=== PATIENT | female | born 1985 | race Hispanic/Latino ===

== ENCOUNTER 2017-04-16 12:44 | Outpatient (CLI) | payer MEDICAID ==
[2017-04-16 13:32] LABS: Bacteria,Urine 1+ /HPF (Negative); Mucus,Urine FEW /HPF
[2017-04-16 13:34] LABS: Bilirubin,Urine NEG (Negative); Blood,Urine LG (Negative); Ketones,Urine NEG (Negative); Leukocyte Esterase,Urine MOD (Negative); Nitrite,Urine NEG (Negative); Protein,Urine <15 mg/dL mg/dL (Negative); Urobilinogen,Urine < 2.0 mg/dL (<2.0)
[2017-04-16 13:43] VITALS: BP 119/74
[2017-04-16] MEDS ORDERED: LACTATED RINGERS 500 ML IV ONE (14:00)
== END 2017-04-16 14:02 | disposition home or self-care (01) ==
LOC: TRG 12:44
PROVIDERS: ATTEND Obstetrics & Gynecology Gynecology
DX: O47.02 False labor before 37 completed weeks of gestation, second trimester (principal); Z3A.23 23 weeks gestation of pregnancy
CPT/HCPCS: 81001

== ENCOUNTER 2017-05-10 17:31 | Inpatient (IN) | payer MEDICAID ==
[2017-05-10] MEDS ORDERED: BICITRA PO ONE (17:48)
[2017-05-10] MEDS ORDERED: REGLAN IV ONE (17:48)
[2017-05-10] MEDS ORDERED: PEPCID IV ONE (17:48)
[2017-05-10] MEDS ORDERED: EMLA TP PRN (17:48)
--- NOTE | 2017-05-10 17:58 | History and Physical Report ---
History of Present Illness Date of examination: 05/10/17 Date of admission: 05/10/17 17:31 Chief complaint: Multiple abnormalities at 25+6 weeks History of present illness: 31-year-old 003 at 25+6 weeks is referred from maternal medicine office for multiple abnormalities, she is a [facility] patient. Essential history is patient with severe IUGR, oligohydramnios, SUA, VSD, cardiomegaly with pericardial effusion, abnormal calvarium. [facility] notes, patient previously declined amnio infusion and an offer for termination. It appears patient was exposed to methotrexate at about 1-2 weeks gestation, treatment for psoriasis. She was seen at the [facility] office today where oligohydramnios was confirmed and Doppler studies showed reversed flow. Therefore sent to this hospital for delivery with recommendation for section. She has been previously informed of risk of demise. Past History Past Medical History: other (Psoriasis) Past Surgical History: no surgical history [employer] History: denies: HIV, syphilis, trichomonas Social history: single, full code. denies: alcohol abuse, prescription drug abuse, IV drug use - Obstetrical History Expected Date of Delivery: 08/17/17 Actual Gestation: 25 Week(s) 6 Day(s) : 4 Para: 3 Medications and Allergies Allergies Allergy/AdvReac Type Severity Reaction Status Date / Time No Known Allergies Allergy Verified 09/17/14 14:42 Home Medications Medication Instructions Recorded Confirmed Last Taken Type No Known Home Medications [No 09/19/14 09/19/14 Unknown History Reported Home Medications] Active Meds: Active Medications Citric Acid/Sodium Citrate (Bicitra) 30 ml PO ONCE ONE Stop: 05/10/17 17:49 Famotidine (Pepcid) 20 mg IV ONCE ONE Stop: 05/10/17 17:49 Cefazolin Sodium (Ancef/Sterile Water 2 Gm/20 Ml) 2 gm in 20 mls @ 80 mls/hr IV PREOP NR PRN Reason: Protocol Lactated Ringer's (Lactated Ringers) 1,000 mls @ 2,250 mls/hr IV PREOP JERRI Stop: 05/11/17 18:27 Oxytocin/Sodium Chloride (Pitocin/Ns 20 Unit/1000ml Drip) 20 units in 1,000 mls @ 0 mls/hr IV TITR JERRI PRN Reason: As Directed Lidocaine/Prilocaine (Emla) 1 applic TP ONCE PRN PRN Reason: for milian catheter insertion Metoclopramide HCl (Reglan) 10 mg IV ONCE ONE Stop: 05/10/17 17:49 Review of Systems Constitutional: no fever, no chills, no weakness, no lethargy, no chronic headaches, no chronic pain Cardiovascular: no chest pain, no orthopnea, no syncope, no lightheadedness, no shortness of breath, no dyspnea on exertion, no high blood pressure Respiratory: no cough, no shortness of breath, no dyspnea on exertion Gastrointestinal: no abdominal pain, no nausea, no vomiting, no heartburn Genitourinary: no vaginal bleeding, no vaginal discharge, no leakage of fluid, no contractions - Physical Exam Cardiovascular: Regular rate, Normal S1, Normal S2 Lungs: Positive: Clear to auscultation, Normal air movement Abdomen: Positive: normal appearance, soft. Negative: distention, tenderness, guarding, rigidity Vulva: both: normal Uterus: Positive: enlarged. Negative: tender Adnexa: both: normal Extremities: Positive: normal Results All other labs normal. Assessment and Plan A: 31-year-old at 25+6 weeks here for Issues -IUGR w/ reversed flow -Abnormal ; echo w/ multiple abn (VSD, SUA, Cardiomegaly, VSD) -Abnormal skull P: -Neonatology consult placed -Discussed section with the patient, advised that she will have a vertical uterine scar requiring C-sections in future -Disposition after neonatology consult - Patient Problems (1) 25 to 26 weeks gestation of Current Visit: Yes Status: Acute (2) IUGR (intrauterine growth restriction) Current Visit: Yes Status: Acute (3) abnormality in antepartum Current Visit: Yes Status: Acute Qualifiers: Fetus number: F (4) Abnormal echocardiogram affecting antepartum care of mother Current Visit: Yes Status: Acute Qualifiers: Fetus number: F
[2017-05-10] MEDS ORDERED: ANCEF/STERILE WATER 2 GM/20 ML 2 GM/20 ML SYRINGE IV NR (18:00)
[2017-05-10] MEDS ORDERED: LACTATED RINGERS 1,000 ML IV SCH (18:00)
[2017-05-10] MEDS ORDERED: PITOCin/NS 20 UNIT/1000ML DRIP 20 UNITS/1,000 ML BAG IV SCH ×2 (18:00→23:45)
[2017-05-10 20:10] LABS: Basophils % (Auto) 0.2 % (0.0-1.8); Hematocrit 36.7 % (30.3-42.9); Hemoglobin 12.5 gm/dl (10.1-14.3); Mean Corpuscular HGB Conc 34 % (30-34); Mean Corpuscular Hemoglobin 31 pg (28-32); Mean Corpuscular Volume 91 fl (79-97); Platelet Count 333 K/mm3 (140-440); Red Blood Count 4.06 M/mm3 (3.65-5.03); Red Cell Distribution Width 13.2 % (13.2-15.2); White Blood Count 15.8 K/mm3 (4.5-11.0)
[2017-05-10] MEDS ORDERED: CERVIDIL VG ONE (23:13)
[2017-05-10] MEDS ORDERED: ePHEDrine SULFATE IV PRN (23:13)
[2017-05-10] MEDS ORDERED: PHENERGAN PO PRN (23:13)
[2017-05-10] MEDS ORDERED: ZOFRAN IV PRN (23:13)
[2017-05-10] MEDS ORDERED: MINERAL OIL PO PRN (23:13)
[2017-05-10] MEDS ORDERED: XYLOCAINE 2% INFILTRATI ONE (23:13)
[2017-05-10] MEDS ORDERED: SUBLIMAZE IV PRN (23:13)
[2017-05-10] MEDS ORDERED: POLYCILLIN/NS 2 GM/100 ML 2 GM/100 ML BAG IV ONE (23:13)
[2017-05-10] MEDS ORDERED: BRETHINE SUB-Q PRN (23:13)
[2017-05-10] MEDS ORDERED: BRETHINE IVP PRN (23:13)
--- NOTE | 2017-05-10 23:13 | Event Note ---
Date: 05/10/17 Patient was seen by Dr. Hull of neonatology, myself and Dr. Barajas of [facility] (on speaker phone). Dr Hull had a long discussion with the patient, explained that due to estimated weight and sonogram findings, the 's chance of viability was extremely low. I then discussed mode of delivery with the patient , I explained that a will require a vertical incision. This will mean that future deliveries will have to be by . I then explained that vaginal delivery would be less morbid for her than a . I gave her and her partner the option of either but I explained that if she chose vaginal delivery, I would recommend against monitoring baby's heart tones. The patient and her partner were then given a chance to discuss this together. On returning to the room, the patient and her partner have decided to proceed with a vaginal delivery. All of their questions were answered, will proceed with Cervidil induction at this time.
[2017-05-10] MEDS ORDERED: PITOCin/NS 30 UNIT/500ML 30 UNITS/500 ML BAG IV SCH (23:45)
[2017-05-11] MEDS: LACTATED RINGERS 1,000 ML IV SCH ×2 (02:35→07:50)
[2017-05-11] MEDS ORDERED: POLYCILLIN/NS 1 GM/50 ML 1 GM/50 ML BAG IV SCH (03:30)
[2017-05-11] MEDS ORDERED: BICITRA ONE (09:54)
[2017-05-11] MEDS ORDERED: PEPCID IV ONE (09:55)
[2017-05-11] MEDS ORDERED: REGLAN ONE ×2 (09:55→10:16)
--- NOTE | 2017-05-11 10:15 | Progress Note ---
Assessment and Plan - Patient Problems (1) 26 weeks gestation of Onset Date: 05/11/17 Current Visit: Yes Status: Acute Plan to address problem: A: IUP @ 26 0/7 weeks Severe IUGR Oligohydramnios Multiple anomalies Non-reassuring surveillance P: Will proceed with a C Section. Pt aware of potential poor outcome. (2) IUGR (intrauterine growth restriction) affecting care of mother Onset Date: 05/11/17 Current Visit: Yes Status: Acute Qualifiers: Fetus number: single or unspecified fetus Trimester: second trimester Qualified Code(s): O36.5920 - Maternal care for other known or suspected poor growth, second trimester, not applicable or unspecified (3) Oligohydramnios antepartum Onset Date: 05/11/17 Current Visit: Yes Status: Acute Qualifiers: Fetus number: single or unspecified fetus Qualified Code(s): O41.00X0 - Oligohydramnios, unspecified trimester, not applicable or unspecified Subjective - Subjective Date of service: 05/11/17 Principal diagnosis: IUP @ 26 0/7 weeks; IUGR; Oligohydramnios Interval history: Pt changed her mind about having a c section. Patient reports: movement normal, contractions, no new complaints, no loss of fluid, no vaginal bleeding Objective - Vital Signs Vital Signs: Vital Signs - 12hr 05/11/17 05/11/17 05/11/17 02:32 07:41 09:58 Temperature 98.2 F Pulse Rate 73 73 100 H Respiratory 16 Rate Blood Pressure 122/74 114/73 136/83 - Exam Abdomen: Present: normal appearance, soft FHR: category 3 Uterine Contraction Monitor Mode: External - Labs Labs: Abnormal Labs 05/10/17 19:33 WBC 15.8 H Lymph % (Auto) 8.6 L Seg Neutrophils % 88.1 H Seg Neutrophils # 13.9 H Laboratory Results - last 24 hr 05/10/17 05/10/17 19:33 19:37 WBC 15.8 H RBC 4.06 Hgb 12.5 Hct 36.7 MCV 91 MCH 31 MCHC 34 RDW 13.2 Plt Count 333 Lymph % (Auto) 8.6 L [place] % (Auto) 3.1 Eos % (Auto) 0.0 Baso % (Auto) 0.2 Lymph # 1.4 [place] # 0.5 Eos # 0.0 Baso # 0.0 Seg Neutrophils % 88.1 H Seg Neutrophils # 13.9 H Blood Type A NEGATIVE Antibody Screen Positive Antibody Identification Anti-D (Passively Aquired)
[2017-05-11] MEDS ORDERED: NEO SYNEPHRINE/NS Syringe(OR USE) IV ONE (10:30)
--- NOTE | 2017-05-11 10:40 | Anesthesia Consultation ---
Anesthesia Consult and Med Hx Date of service: 05/11/17 - Airway Anesthetic Teeth Evaluation: Good ROM Head & Neck: Adequate Mental/Hyoid Distance: Adequate Mallampati Class: Class II Intubation Access Assessment: Probably Good - Pre-Operative Health Status ASA Pre-Surgery Classification: ASA2 Proposed Anesthetic Plan: Spinal - Pulmonary Hx Asthma: No COPD: No Hx Pneumonia: No - Cardiovascular System Hx Hypertension: No - Central Nervous System Hx Seizures: No Hx Psychiatric Problems: No - Endocrine Hx Renal Disease: No Hx End Stage Renal Disease: No Hx Hypothyroidism: No Hx Hyperthyroidism: No - Hematic Hx Anemia: Yes (2010, 2012, 2014) Hx Sickle Cell Disease: No - Other Systems Hx Alcohol Use: No - Additional Comments Anesthesia Medical History Comments: 26 weeks , congenital defects, IUGR, NRFHTs
[2017-05-11] MEDS ORDERED: DILAUDID IV PRN (10:41)
[2017-05-11] MEDS ORDERED: ZOFRAN IV PRN (10:41)
--- NOTE | 2017-05-11 10:41 | Anesthesia Day of Surgery ---
Anesthesia Day of Surgery - Day of Surgery Patient Examined: Yes Patient H&P Reviewed: Yes Patient is NPO: Yes
[2017-05-11] MEDS ORDERED: MORPHINE ONE (10:51)
[2017-05-11] MEDS ORDERED: SODIUM CHLORIDE FLUSH SYRINGE 10 ML IV NR ×2 (11:00→12:00)
[2017-05-11] MEDS ORDERED: NACL 0.9% IR ONE (11:13)
[2017-05-11] MEDS ORDERED: WATER FOR IRRIG STERILE IR ONE (11:13)
--- NOTE | 2017-05-11 11:16 | Consultation ---
History of Present Illness Consult date: 05/10/17 Requesting physician: LANI BEAUCHAMP Reason for consult: other (Multiple congenital anomalies,severe IUGR at 25 weeks gestation) History of present illness: 05/10 (late entry): I have reviewed mother's chart and spoken with the otolaryngology surgeon requesting this consult and the perinatologist. I met with the mother and father of the baby. This is a 25 week baby with multiple congenital anomalies including 2 vessel umbilical cord, severe oligohydramnios, absent stomach bubble, abnormal shaped skull, agenesis of the corpus callosum, VSD,ASD , pericardial effusion noted to have reversed end diastolic flow today. Estimated weight is 318g. Dr. Barajas recommended immediate delivery while stating that measures were unlikely to be successful. I spoke with mother with Dr. Beauchamp present in the room. 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 I offered mother the option of comfort care after delivery and gave her time to discuss this with family in the room. I returned with Dr. Beauchamp and Dr. Barajas on the phone. Both parents asked further questions about the effect of vaginal delivery on the baby. I explained that whilst vaginal delivery may be stressful for the baby it will not be harmful. Mother opted for vaginal delivery and stated that she would at least want to 'try'. I informed mother that at the time of delivery we will take the baby to the warmer for a full assessment and weight and if > 450g will attempt respiratory measures by bag and mask to see if baby will respond. If baby does not respond she will be given to mother to hold. 05/11: I met with mother again this morning with Dr. Metzger present after I was informed this morning by L&D that mother had remained on monitors overnight after cervidil and baby was having category 3 tracing and going to the OR for a stat . Dr. Metzger was unaware that the baby was on continuous monitoring and was informed of the same this morning. I asked mother what her expectations are after baby is born and she verbalized that she understood that we were going to try to see if the baby will respond. I re-inforced that we will attempt respiratory measures if baby is > 450g and continue resuscitation only if baby responded to respiratory, measures since chest compressions will be harmful to the baby and be of no benefit if baby does not respond to ventilatory measures. She verbalised understanding of the plan. [place] Documentation - information: Height 5 ft 10 in Medications and Allergies Allergies Allergy/AdvReac Type Severity Reaction Status Date / Time No Known Allergies Allergy Verified 09/17/14 14:42 Home Medications Medication Instructions Recorded Confirmed Last Taken Type Ferrous Sulfate [Feosol 325 MG tab] 325 mg PO BID #60 tablet 05/11/17 Unknown Rx HYDROcodone/APAP 5-325 [Inchelium 1 each PO Q6HR PRN #30 tablet 05/11/17 Unknown Rx 5/325] Ibuprofen [Motrin] 800 mg PO Q8HR PRN #30 tablet 05/11/17 Unknown Rx Vit W-Ca,Fe,FA(<1 mg) 1 each PO DAILY #30 tablet 05/11/17 Unknown Rx [ Vitamins] Active Meds: Active Medications Diphenhydramine HCl (Benadryl) 12.5 mg IV Q2H PRN PRN Reason: Itching Fentanyl (Sublimaze) 100 mcg IV Q2H PRN PRN Reason: Labor Pain Hydromorphone HCl (Dilaudid) 0.5 mg IV Q4H PRN PRN Reason: breakthrough pain > 7/10 Lactated Ringer's (Lactated Ringers) 1,000 mls @ 2,250 mls/hr IV PREOP JERRI Stop: 05/11/17 18:27 Oxytocin/Sodium Chloride (Pitocin/Ns 20 Unit/1000ml Drip) 20 units in 1,000 mls @ 0 mls/hr IV TITR JERRI PRN Reason: As Directed Ampicillin Sodium (Polycillin/Ns 1 Gm/50 Ml) 1 gm in 50 mls @ 100 mls/hr IV Q4H JERRI PRN Reason: Protocol Lactated Ringer's (Lactated Ringers) 1,000 mls @ 125 mls/hr IV DIRECT JERRI Last Admin: 05/11/17 07:50 Dose: 125 mls/hr Oxytocin/Sodium Chloride (Pitocin/Ns 20 Unit/1000ml Drip) 20 units in 1,000 mls @ 125 mls/hr IV DIRECT JERRI Oxytocin/Sodium Chloride (Pitocin/Ns 30 Unit/500ml) 30 units in 500 mls @ 1 mls /hr IV TITR JERRI; 1 MILLIUNITS/MIN PRN Reason: Protocol Lidocaine/Prilocaine (Emla) 1 applic TP ONCE PRN PRN Reason: for milian catheter insertion Mineral Oil (Mineral Oil) 30 ml PO QHS PRN PRN Reason: Constipation Naloxone HCl (Narcan 0.4 Mg/1 Ml) 0.2 mg IV Q2MIN PRN PRN Reason: Res Rate </= 8 or 02 SAT < 92% Stop: 05/13/17 10:42 Ondansetron HCl (Zofran) 4 mg IV Q8H PRN PRN Reason: Nausea And Vomiting Ondansetron HCl (Zofran) 4 mg IV Q8H PRN PRN Reason: Nausea And Vomiting Promethazine HCl (Phenergan) 25 mg PO Q6H PRN PRN Reason: Nausea And Vomiting Sodium Chloride (Sodium Chloride Flush Syringe 10 Ml) 10 ml IV PRN NR Exam Vital Signs Pulse BP 84 131/73 05/10/17 19:22 05/10/17 19:22 Temp Pulse Resp BP Pulse Ox 98.2 F 100 H 16 136/83 05/11/17 02:32 05/11/17 09:58 05/11/17 02:32 05/11/17 09:58 Results - Laboratory Findings 05/10/17 19:33 Abnormal lab results 05/10/17 Range/Units 19:33 WBC 15.8 H (4.5-11.0) K/mm3 Lymph % (Auto) 8.6 L (13.4-35.0) % Seg Neutrophils % 88.1 H (40.0-70.0) % Seg Neutrophils # 13.9 H (1.8-7.7) K/mm3
[2017-05-11] MEDS ORDERED: VERSED ONE (11:26)
--- NOTE | 2017-05-11 11:55 | Operative Report ---
Operative Report Operative Report: Date of procedure: 05/11/2017 Pre-operative diagnosis: 1. Intrauterine at 26-0/7 weeks 2. Severe IUGR 3. Oligohydramnios 4. anomalies 5. Nonreassuring surveillance Post-operative diagnosis: Same Procedure name(s): Primary classical Surgeon: Clarence Metzger MD Supervisor Fusing Room: None Anesthesia: Spinal anesthesia by Dr. Weiner EBL: 300 mL's Findings: A 349 g female infant Apgars 1 at 1 minute 1 and 5 minutes 1 at 10 minutes. Normal uterus. Normal tubes and ovaries bilaterally Procedure: After the patient was prepped and draped in usual sterile fashion, and after satisfactory level of epidural anesthesia was obtained, the skin knife was used to make a transverse skin incision. The incision was excised down to layer of the fascia, which was nicked in the midline and extended laterally using the Bovie cautery. The rectus muscles were dissected off the rectus fascia both superiorly and inferiorly. The rectus bellies in the midline, and the peritoneum was entered under direct visualization. The peritoneal incision was extended superiorly and inferiorly. A bladder flap was created and the bladder blade was then placed. The uterus was scored in a vertical linear fashion, entered in the midline revealing brown-colored amniotic fluid. The was delivered onto the surgical field, the cord was doubly clamped and cut and the was handed to the waiting respiratory team. The placenta was manually removed from the uterus, and the uterus removed from its normal anatomical position. After gentle uterine lavage, the incision was inspected and found to be without extensions. It was then closed in 2 layers using 0 Vicryl suture in a running interlocking fashion, the second layer imbricating the first. After good hemostasis was achieved, copious amounts or irrigation was performed, and the gutters were suctioned free of blood and blood clots. Tisseel sealant was sprayed across the uterine incision. The uterus was then returned to its normal anatomical position, and after excellent hemostasis assured, the peritoneum was re-approximated using 3- 0 Vicryl suture in a running interlocking fashion, and then the rectus muscles were re-approximated using 3-0 Vicryl suture in a [id number] configuration. The fascia was then re-approximated using 0 Vicryl suture in running interlocking fashion. The subcutaneous layer was made hemostatic using Bovie cautery, the Tisseel sealant was sprayed across the fascial incision and the skin edges re-approximated using 4-0 Vicryl suture in a sub-cuticular fashion. Patient tolerated the procedure well was transported to recovery in stable condition.
[2017-05-11] MEDS ORDERED: LANSINOH TP PRN (12:00)
[2017-05-11] MEDS ORDERED: ANCEF/NS 1 GM/50 ML 1 GM/50 ML BAG IV SCH (12:00)
[2017-05-11] MEDS ORDERED: MILK OF MAGNESIA PO PRN (12:00)
[2017-05-11] MEDS ORDERED: TYLENOL PO PRN (12:00)
[2017-05-11] MEDS ORDERED: NARCAN 0.4 MG/1 ML IV PRN ×2 (12:00)
[2017-05-11] MEDS ORDERED: SENOKOT PO PRN (12:00)
[2017-05-11] MEDS ORDERED: NORCO 5/325 PO PRN (12:00)
[2017-05-11] MEDS ORDERED: PITOCin/NS 20 UNIT/1000ML DRIP 20 UNITS/1,000 ML BAG IV SCH (12:00)
[2017-05-11] MEDS ORDERED: D5LR 1,000 ML IV SCH (12:00)
[2017-05-11] MEDS ORDERED: TUCKS PAD TP PRN (12:00)
[2017-05-11] MEDS ORDERED: MYLICON PO PRN (12:00)
[2017-05-11] MEDS ORDERED: PHENERGAN PR PRN (12:00)
--- NOTE | 2017-05-11 13:13 | Post Anesthesia Evaluation ---
- Post Anesthesia Evaluation Patient Participated: Yes Airway Patent: Yes Stable Respiratory Function: Yes Temp > 96.8F: Yes Pain Manageable: Yes Adequeate Hydration: Yes Anesthesia Complications: No Block Receding Appropriately: Yes
[2017-05-11] MEDS: TORADOL IV PRN ×2 (13:25→22:36)
[2017-05-11] MEDS: BENADRYL IV PRN ×3 (14:34→22:41)
[2017-05-12 01:31] LABS: Hematocrit 29.2 % (30.3-42.9); Hemoglobin 9.9 gm/dl (10.1-14.3)
[2017-05-12] MEDS ORDERED: ANCEF/NS 1 GM/50 ML 1 GM/50 ML BAG IV SCH (04:00)
[2017-05-12] MEDS: TORADOL IV PRN (04:26)
[2017-05-12] MEDS: PERCOCET 5/325 PO PRN ×2 (08:58→17:16)
[2017-05-12] MEDS: MOTRIN PO PRN ×2 (08:58→17:17)
[2017-05-12] MEDS: FEOSOL PO SCH (08:59)
[2017-05-12] MEDS ORDERED: PRENATAL VITAMIN PO SCH (10:00)
--- NOTE | 2017-05-12 11:04 | Progress Note ---
Assessment and Plan - Patient Problems (1) 26 weeks gestation of Onset Date: 05/11/17 Current Visit: Yes Status: Resolved (2) IUGR (intrauterine growth restriction) affecting care of mother Onset Date: 05/11/17 Current Visit: Yes Status: Resolved Qualifiers: Fetus number: single or unspecified fetus Trimester: second trimester Qualified Code(s): O36.5920 - Maternal care for other known or suspected poor growth, second trimester, not applicable or unspecified (3) Oligohydramnios antepartum Onset Date: 05/11/17 Current Visit: Yes Status: Resolved Qualifiers: Fetus number: single or unspecified fetus Qualified Code(s): O41.00X0 - Oligohydramnios, unspecified trimester, not applicable or unspecified (4) Status post primary low transverse section Onset Date: 05/12/17 Current Visit: Yes Status: Resolved Plan to address problem: A: S/P Classical C Section - POD #1 Doing well Acute blood loss anemia - stable P: Continue RPOC Anticipate discharge in 24hrs Subjective - Subjective Date of service: 05/12/17 Principal diagnosis: s/p Classical C Section - POD #1 Interval history: Pt is feeling well without complaints. Tolerating a reg diet without nausea or vomiting, ambulating and voiding without difficulty. Patient reports: appetite normal, voiding normally, pain well controlled, flatus , ambulating normally [place]: Objective - Vital Signs Latest vital signs: Vital Signs Temp Pulse Resp BP BP Pulse Ox 05/12/17 09:28 98.0 F 67 16 100/53 05/12/17 04:40 99.0 F 72 18 110/64 05/12/17 04:26 18 05/12/17 00:00 98.2 F 73 18 113/69 05/11/17 22:36 18 05/11/17 20:05 98.2 F 80 132/74 05/11/17 16:18 16 05/11/17 16:00 99.1 F 83 18 118/68 05/11/17 13:40 98.6 F 73 16 111/71 05/11/17 12:59 62 15 121/71 98 05/11/17 12:43 63 15 109/78 97 05/11/17 12:27 83 17 126/82 97 05/11/17 12:12 80 16 111/82 97 05/11/17 12:07 77 16 113/69 97 05/11/17 12:02 74 14 107/55 98 05/11/17 11:57 98.4 F 87 16 106/44 99 Intake and Output 05/11/17 05/12/17 05/12/17 22:59 06:59 14:59 Intake Total 620 360 Output Total 500 Balance 620 -140 Intake: IV 500 PITOCin/NS 20 UNIT/1000ML 500 DRIP 20 units In 1,000 ml @ 125 mls/hr IV DIRECT JERRI Rx#:[id number] Oral 120 360 Output: Urine 500 Indwelling Catheter 300 Void 200 Other: Total, Intake Amount 120 120 Total, Output Amount 200 - Exam Breasts: Present: deferred Cardiovascular: Present: Regular rate Lungs: Present: Clear to auscultation Abdomen: Present: normal appearance, soft Uterus: Present: normal, firm, fundal height below umbilicus Extremities: Present: normal Incision: Present: normal, dry, intact, dressed - Labs Labs: Abnormal lab results 05/12/17 Range/Units 01:03 Hgb 9.9 L (10.1-14.3) gm/dl Hct 29.2 L D (30.3-42.9) % Laboratory Tests 05/10/17 05/10/17 05/12/17 19:33 19:37 01:03 WBC 15.8 H RBC 4.06 Hgb 12.5 9.9 L Hct 36.7 29.2 L D MCV 91 MCH 31 MCHC 34 RDW 13.2 Plt Count 333 Lymph % (Auto) 8.6 L [place] % (Auto) 3.1 Eos % (Auto) 0.0 Baso % (Auto) 0.2 Lymph # 1.4 [place] # 0.5 Eos # 0.0 Baso # 0.0 Seg Neutrophils % 88.1 H Seg Neutrophils # 13.9 H Blood Type A NEGATIVE Antibody Screen Positive Antibody Identification Anti-D (Passively Aquired) Screen 05/12/17 05/12/17 01:03 01:03 WBC RBC Hgb Hct MCV MCH MCHC RDW Plt Count Lymph % (Auto) [place] % (Auto) Eos % (Auto) Baso % (Auto) Lymph # [place] # Eos # Baso # Seg Neutrophils % Seg Neutrophils # Blood Type A NEGATIVE Antibody Screen Positive Antibody Identification Anti-D (Passively Aquired) Anti-D (Passively Aquired) Screen Negative
[2017-05-12] MEDS ORDERED: M-M-R II VACCINE SUB-Q ONE (12:01)
[2017-05-12] MEDS ORDERED: BOOSTRIX IM ONE (12:01)
[2017-05-13] MEDS: MOTRIN PO PRN (00:05)
[2017-05-13] MEDS: PERCOCET 5/325 PO PRN ×2 (00:05→09:31)
[2017-05-13 09:21] VITALS: BP 143/89
[2017-05-13] MEDS: FEOSOL PO SCH (09:26)
--- NOTE | 2017-05-13 09:35 | Progress Note ---
Assessment and Plan - Patient Problems (1) 26 weeks gestation of Onset Date: 05/11/17 Current Visit: Yes Status: Resolved (2) IUGR (intrauterine growth restriction) affecting care of mother Onset Date: 05/11/17 Current Visit: Yes Status: Resolved Qualifiers: Fetus number: single or unspecified fetus Trimester: second trimester Qualified Code(s): O36.5920 - Maternal care for other known or suspected poor growth, second trimester, not applicable or unspecified (3) Oligohydramnios antepartum Onset Date: 05/11/17 Current Visit: Yes Status: Resolved Qualifiers: Fetus number: single or unspecified fetus Qualified Code(s): O41.00X0 - Oligohydramnios, unspecified trimester, not applicable or unspecified (4) Status post primary low transverse section Onset Date: 05/12/17 Current Visit: Yes Status: Resolved Plan to address problem: A: S/P Classical C Section - POD #2 Doing well Acute blood loss anemia - stable P: May go home today (5) Acute blood loss anemia Onset Date: 05/12/17 Current Visit: Yes Status: Resolved Subjective - Subjective Date of service: 05/13/17 Principal diagnosis: s/p Classical C Section - POD #2 Interval history: Pt is feeling well without complaints. Just sad, not depressed. Tolerating a reg diet without nausea or vomiting, ambulating and voiding without difficulty. Patient reports: appetite normal, voiding normally, pain well controlled, flatus , ambulating normally [place]: Objective - Vital Signs Latest vital signs: Vital Signs Temp Pulse Resp BP BP 05/13/17 07:59 98.4 F 20 143/89 05/13/17 00:00 98.6 F 66 120/71 05/12/17 23:26 98.2 F 80 20 112/62 05/12/17 20:10 98.7 F 79 115/72 05/12/17 16:30 98.2 F 70 20 128/64 05/12/17 12:00 98.1 F 68 18 112/60 Intake and Output 05/12/17 05/13/17 05/13/17 22:59 06:59 14:59 Intake Total 240 Balance 240 Intake: Oral 240 Other: Total, Intake Amount 240 # Voids Void 1 1 - Exam Breasts: Present: deferred Cardiovascular: Present: Regular rate Lungs: Present: Clear to auscultation Abdomen: Present: normal appearance, soft Uterus: Present: normal, firm, fundal height below umbilicus Extremities: Present: normal Incision: Present: normal, dry, intact
--- NOTE | 2017-05-13 10:16 | Discharge Summary ---
Providers - Providers Date of Admission: 05/10/17 17:31 Date of discharge: 05/13/17 Attending physician: ALNI BEAUCHAMP 05/10/17 17:49 Consult to Physician [CONS] Routine Consulting Provider: ANALILIA WATSON Reason For Exam: 25-26 wks Primary care physician: LANI BEAUCHAMP Hospitalization Reason for admission: IUP - , observation, induction of labor Delivery: Procedure: section, other (Classical) Laceration: none Incision: normal, dry, intact Other procedures: none complications: none Discharge diagnosis: intrapartum demise [place] baby: female Hospital course: Pt is a 31-year-old WF 003 at 25+6 weeks who was referred from maternal medicine office for multiple abnormalities, she is a [facility] patient. Essential history is patient with severe IUGR, oligohydramnios, SUA, VSD, cardiomegaly with pericardial effusion, abnormal calvarium. [facility] notes, patient previously declined amnio infusion and an offer for termination. It appeared that she was exposed to methotrexate at about 1-2 weeks gestation, treatment for psoriasis. She was sent to this hospital for delivery with recommendation for section. She has been previously informed of risk of demise. She underwent an uncomplicated Classical C Section and delivered a non-viable female infant. Post operative course was unremarkable, and by POD #2 she was tolerating a reg diet without nausea or vomiting, ambulating and voiding without difficulty, and therefore discharged to home on POD #2 in stable condition. Condition at discharge: Good Disposition: [id number] TO HOME OR SELFCARE - Discharge Diagnoses (1) 26 weeks gestation of Status: Resolved (2) IUGR (intrauterine growth restriction) affecting care of mother Status: Resolved Qualifiers: Fetus number: single or unspecified fetus Trimester: second trimester Qualified Code(s): O36.5920 - Maternal care for other known or suspected poor growth, second trimester, not applicable or unspecified (3) Oligohydramnios antepartum Status: Resolved Qualifiers: Fetus number: single or unspecified fetus Qualified Code(s): O41.00X0 - Oligohydramnios, unspecified trimester, not applicable or unspecified (4) Status post primary low transverse section Status: Resolved (5) Acute blood loss anemia Status: Resolved Plan - Discharge Medications Prescriptions: Ferrous Sulfate [Feosol 325 MG tab] 325 mg PO BID #60 tablet HYDROcodone/APAP 5-325 [Paradox 5/325] 1 each PO Q6HR PRN #30 tablet PRN Reason: Pain Ibuprofen [Motrin] 800 mg PO Q8HR PRN #30 tablet PRN Reason: Moder Pain Unrelieved By Paradox Vit W-Ca,Fe,FA(<1 mg) [ Vitamins] 1 each PO DAILY #30 tablet - Provider Discharge Summary Activity: routine, no sex for 6 weeks, no heavy lifting 4 weeks, no strenuous exercise Diet: routine Instructions: routine Additional instructions: [] Smoking cessation referral if applicable(refer to patient education folder for contact #) [] Refer to [facility]'s [facility] Booklet Call your doctor immediately for: * Fever > 100.5 * Heavy vaginal bleeding ( >1 pad per hour) * Severe persistent headache * Shortness of breath * Reddened, hot, painful area to leg or breast * Drainage or odor from incision. * Keep incision clean and dry at all times and follow doctor's instructions regarding bathing/showering - Follow up plan Follow up: LANI BEAUCHAMP MD [Primary Care Provider] - 14 Days
== END 2017-05-13 13:30 | disposition home or self-care (01) | DRG 765 ==
LOC: APU 17:31 → LD 18:21 → OB 05-11 13:53
PROVIDERS: ADMIT Obstetrics & Gynecology Gynecology; ATTEND Obstetrics & Gynecology Gynecology
PROC: 10D00Z0 Extraction of Products of Conception, High, Open Approach (ICD-10-PCS; 2017-05-11)
PROC: 3E0234Z Introduction of Serum, Toxoid and Vaccine into Muscle, Percutaneous Approach (ICD-10-PCS; principal; 2017-05-12)
PROC: 30233S1 Transfusion of Nonautologous Globulin into Peripheral Vein, Percutaneous Approach (ICD-10-PCS; 2017-05-12)
DX: O99.42 Diseases of the circulatory system complicating childbirth (principal); Q04.0 Congenital malformations of corpus callosum; O41.02X0 Oligohydramnios, second trimester, not applicable or unspecified; O36.5920 Maternal care for other known or suspected poor fetal growth, second trimester, not applicable or unspecified; Z37.1 Single stillbirth; O35.9XX0 Maternal care for (suspected) fetal abnormality and damage, unspecified, not applicable or unspecified; O99.03 Anemia complicating the puerperium; D62 Acute posthemorrhagic anemia; O99.72 Diseases of the skin and subcutaneous tissue complicating childbirth; L40.9 Psoriasis, unspecified; O36.4XX0 Maternal care for intrauterine death, not applicable or unspecified; I51.7 Cardiomegaly; Z3A.25 25 weeks gestation of pregnancy; Z23 Encounter for immunization; Q21.0 Ventricular septal defect
CPT/HCPCS: 36415; 59200; 85014; 85018; 85025; 85461; 86850; 86870; 86900; 86901; 88305; C9250; J0690; J1170; J1200; J1885; J2250; J2270; J2370; J2590; J2765; J2790; J7120; J7121

== ENCOUNTER 2018-03-25 07:13 | Outpatient (CLI) | payer MEDICAID ==
[2018-03-25 10:30] VITALS: BP 104/61
== END 2018-03-25 10:30 | disposition home or self-care (01) ==
LOC: LAB 07:13 → TRG 07:13
PROVIDERS: ATTEND Obstetrics & Gynecology
DX: Z29.13 Encounter for prophylactic Rho(D) immune globulin (principal)
CPT/HCPCS: 86850; 86900; 86901; 96372; J2790

== ENCOUNTER 2018-05-17 13:07 | Observation (INO) | payer MEDICAID ==
[2018-05-17] MEDS ORDERED: LACTATED RINGERS 1,000 ML ONE (14:59)
[2018-05-17] MEDS ORDERED: TYLENOL PO PRN (15:06)
[2018-05-17] MEDS ORDERED: LACTATED RINGERS 1,000 ML IV ONE (15:14)
[2018-05-17 17:13] LABS: Hematocrit 29.7 % (30.3-42.9); Hemoglobin 9.5 gm/dl (10.1-14.3); Mean Corpuscular HGB Conc 32 % (30-34); Mean Corpuscular Hemoglobin 26 pg (28-32); Mean Corpuscular Volume 82 fl (79-97); Platelet Count 228 K/mm3 (140-440); Red Blood Count 3.61 M/mm3 (3.65-5.03)
--- NOTE | 2018-05-17 18:38 | Ultrasound Report ---
FINAL REPORT EXAM: US OB BPP WO NON-STRESS HISTORY: wellbeing,MONIQUE,Placenta,BPP, s/p Fall TECHNIQUE: Transabdominal sonography of the pelvis. PRIORS: None. FINDINGS: Biophysical profile: breathing movements: 2/2 movements: 2/2 posture and tone: 2/2 Qualitative amniotic fluid volume: 2/2 Total: 8/8 heart rate 137 beats per minute. IMPRESSION: 1. Biophysical profile as noted above.
--- NOTE | 2018-05-17 18:40 | Ultrasound Report ---
FINAL REPORT EXAM: US OB LIMITED HISTORY: wellbeing,MONIQUE,Placenta,BPP, s/p Fall TECHNIQUE: Transabdominal sonography of the pelvis. PRIORS: None. FINDINGS: There is a single, live intrauterine in cephalic presentation. heart motion is detected and heart rate is 138 beats per minute. Placenta is located left lateral and there is no evidence of previa or abruption. Biometric data not obtained. survey not performed. Amniotic fluid index is 12.8 cm. Remainder of the uterus and adnexa grossly unremarkable. IMPRESSION: 1. Single, live intrauterine .
--- NOTE | 2018-05-18 07:16 | History and Physical Report ---
History of Present Illness Date of examination: 05/17/18 Date of admission: 05/17/18 14:02 Chief complaint: s/p fall on 05/17/18 History of present illness: NOTE: H&P erroneously initially entered on wrong encounter. Transfer now to this encounter: 32-year-old A3 at 36 weeks presents after a fall, she is a [facility] patient. Since her history is patient was walking [employer] today she slipped on some fluid on the floor. Patient landed on her knee and was advised to proceed to the hospital by EMS. This happened about ~ 2 hours prior to presentation to triage. She did not fall on her belly, denies vaginal bleeding or loss of fluid; she does have uterine contractions and complains of decreased movement. She is Rh- and has a history of classical at 26 weeks of fetus with multiple abnormalities (suspect patient was exposed to methotrexate). 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 denies: smoking, alcohol abuse, prescription drug abuse, IV drug use - Obstetrical History Expected Date of Delivery: 06/14/18 Actual Gestation: 36 Week(s) 1 Day(s) : 5 Para: 4 Medications and Allergies Allergies Allergy/AdvReac Type Severity Reaction Status Date / Time No Known Allergies Allergy Verified 05/17/18 13:42 Home Medications Medication Instructions Recorded Confirmed Last Taken Type Multivit-Min/Folic Acid/Dnj209 1 tab PO DAILY 03/25/18 05/17/18 03/24/18 19:00 History [Alive Women's Gummy Vitamins] Active Meds: Active Medications Acetaminophen (Tylenol) 650 mg PO Q6H PRN PRN Reason: Pain, Mild (1-3) Last Admin: 05/17/18 16:00 Dose: 650 mg Review of Systems Constitutional: no fever, no sweats, no chronic headaches Cardiovascular: no chest pain, no orthopnea, no syncope, no lightheadedness, no shortness of breath, no dyspnea on exertion, no high blood pressure, no decreased exercise tolerance Respiratory: no cough, no cough with sputum, no excessive sputum, no shortness of breath, no dyspnea on exertion Gastrointestinal: no abdominal pain, no nausea, no vomiting, no heartburn, no indigestion Genitourinary: contractions, no vaginal bleeding, no vaginal discharge, no leakage of fluid - Vital Signs Vital signs: Vital Signs Pulse BP Pulse Ox 76 117/67 99 05/17/18 13:34 05/17/18 13:34 05/17/18 13:34 Temp Pulse Resp BP Pulse Ox 76 F L 76 18 91/50 98 05/18/18 05:00 05/18/18 05:00 05/18/18 05:00 05/18/18 05:00 05/17/18 14:02 - Physical Exam Abdomen: Positive: normal appearance, soft. Negative: distention, tenderness, guarding, rigidity Genitourinary (Female): Positive: normal external genitalia Uterus: Positive: enlarged. Negative: tender Extremities: Positive: normal - Obstetrical FHR: category 1 Results Result Diagrams: 05/17/18 16:00 Abnormal lab results 05/17/18 Range/Units 16:00 RBC 3.61 L (3.65-5.03) M/mm3 Hgb 9.5 L (10.1-14.3) gm/dl Hct 29.7 L (30.3-42.9) % MCH 26 L (28-32) pg All other labs normal. Assessment and Plan A: 32-year-old A3 at 36 weeks status post fall -Cat 1 tracing -RH neg -c/o DFM -Uterine contractions present -Prior classical section P: -Admit for 23 hr observation -BPP now -Type and screen, KB -Disposition after review - Patient Problems (1) 36 weeks gestation of Current Visit: No Status: Acute (2) Fall due to wet surface Current Visit: No Status: Acute
[2018-05-18 08:33] VITALS: BP 104/7
--- NOTE | 2018-05-18 11:01 | Event Note ---
Date: 05/18/18 Patient is a 32 year old , EDC 06/12/18 who is at 36 weeks and 2 days gestation who was admitted for observation after she fell yesterday on her knees at around 10 AM. She denies falling and hurting her abdomen or back. she denies any fluid leakage or bleeding. She reports good movement. tracing has been CAT1. Sonogram showed BPP of 8/8. She was observed overnight. This AM, she remains stable except for some bruising on her right knee. She is being discharged home. She has an appointment with [place] in 5 days. She has a history of classical C/section and is scheduled for repeat c/section on 06/06/18.
== END 2018-05-18 11:17 | disposition home or self-care (01) ==
LOC: TRG 13:07 → LD 14:02 → TRG 14:02
PROVIDERS: ADMIT Obstetrics & Gynecology; ATTEND Obstetrics & Gynecology
DX: O62.9 Abnormality of forces of labor, unspecified (principal); O36.8130 Decreased fetal movements, third trimester, not applicable or unspecified; O34.219 Maternal care for unspecified type scar from previous cesarean delivery; Z3A.36 36 weeks gestation of pregnancy
CPT/HCPCS: 36415; 59025; 76815; 76819; 85027; 85460; G0378; J7120

== ENCOUNTER 2018-06-06 06:12 | Observation (INO) | payer MEDICAID ==
--- NOTE | 2018-05-17 14:48 | History and Physical Report ---
History of Present Illness Date of examination: 05/17/18 Chief complaint: s/p Fall at 36 wks History of present illness: 32-year-old A3 at 36 weeks presents after a fall, she is a [facility] patient. Since her history is patient was walking [employer] today she slipped on some fluid on the floor. Patient landed on her knee and was advised to proceed to the hospital by EMS. This happened about ~ 2 hours prior to presentation to triage. She did not fall on her belly, denies vaginal bleeding or loss of fluid; she does have uterine contractions and complains of decreased movement. She is Rh- and has a history of classical at 26 weeks of fetus with multiple abnormalities (suspect patient was exposed to methotrexate). 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 denies: smoking, alcohol abuse, prescription drug abuse, IV drug use - Obstetrical History Expected Date of Delivery: 06/14/18 Actual Gestation: 36 Week(s) 0 Day(s) : 5 Para: 4 Number of Living Children: 3 Medications and Allergies Allergies Allergy/AdvReac Type Severity Reaction Status Date / Time No Known Allergies Allergy Verified 05/17/18 13:42 Home Medications Medication Instructions Recorded Confirmed Last Taken Type Multivit-Min/Folic Acid/Gvj524 1 tab PO DAILY 03/25/18 05/17/18 03/24/18 19:00 History [Alive Women's Gummy Vitamins] Review of Systems Constitutional: no fever, no chills, no sweats, no fatigue, no weakness, no chronic pain Cardiovascular: no chest pain, no syncope, no lightheadedness, no shortness of breath, no dyspnea on exertion, no paroxysmal nocturnal dyspnea, no high blood pressure Respiratory: no cough, no cough with sputum, no shortness of breath, no dyspnea on exertion Gastrointestinal: no abdominal pain, no nausea, no vomiting, no heartburn, no indigestion Genitourinary: contractions, no vaginal bleeding, no vaginal discharge, no leakage of fluid Musculoskeletal: no neck stiffness, no neck pain Neurological: no head injury, no migraines, no change in speech, no change in mentation, no confusion, no memory loss - Physical Exam Abdomen: Positive: normal appearance, soft. Negative: distention, tenderness, guarding, rigidity Uterus: Positive: enlarged. Negative: tender Adnexa: both: normal Extremities: Positive: normal - Obstetrical FHR: category 1 Results All other labs normal. Assessment and Plan A: 32-year-old A3 at 36 weeks status post fall -Cat 1 tracing -RH neg -c/o DFM -Uterine contractions present -Prior classical section P: -Admit for 23 hr observation -BPP now -Type and screen, KB -Disposition after review - Patient Problems (1) 36 weeks gestation of Status: Acute (2) Fall due to wet surface Status: Acute
[~2018-06-06 06:12] MED LIST: COLACE PO PRN; LACTATED RINGERS 1,000 ML IV SCH; MILK OF MAGNESIA PO PRN; MYLICON PO PRN; PRENATAL VITAMIN PO SCH; SENOKOT S PO PRN; TYLENOL PO PRN; ZOFRAN IV PRN
[2018-06-06 06:50] VITALS: BP 109/70
[2018-06-06] MEDS ORDERED: LACTATED RINGERS 1,000 ML IV ONE (06:50)
== END 2018-06-06 09:11 | disposition home or self-care (01) ==
LOC: APU 06:12 → INTOOBSV 06:12
PROVIDERS: ADMIT Obstetrics & Gynecology; ATTEND Obstetrics & Gynecology
DX: O36.8130 Decreased fetal movements, third trimester, not applicable or unspecified (principal); O62.9 Abnormality of forces of labor, unspecified; Z3A.36 36 weeks gestation of pregnancy
CPT/HCPCS: 85461; 86850; 86870; 86900; 86901; G0378; G0379